=== PATIENT | male | born 1980 | race Caucasian/White ===

== ENCOUNTER 2016-03-16 15:09 | Emergency (ER) | payer OTHER ==
[~2016-03-16] VITALS: Ht 170.1 cm; Wt 90.7 kg
[~2016-03-16 15:09] MED LIST: AMOXIL500 MG PO; CATAFLAM50 MG PO; CIPRO500 MG PO; FLAGYL500 MG PO; HYDR25T PO; HYDROCODONE BIT1 T11 PO; IBU800 M1 PO; NAPROSYN500 MG PO; PREDNISONE20 MG PO; PRILOSEC10 MG PO; PRILOSEC20 MG PO; PRILOSEC40 MG PO; ROBITUSSIN DM 105 ML PO; TEGRETOL XR200 MG PO; TEGRETOL200 MG; TEGRETOL200 MG PO; VOLTAREN50 M1 PO; ZOFRAN ODT4 MG SL; ZOFRAN4 MG PO
[2016-03-16 16:00] LABS: BASO # 0.1 10*3/uL (0.0-0.1); BASO % 0.6 % (0.0-1.0); EOS # 0.3 10*3/uL (0.0-0.4); EOS % 2.7 % (1.0-4.0); HEMATOCRIT 46.8 % (42.0-52.0); HEMOGLOBIN 15.3 g/dl (14.0-18.0); LYMPH # 2.5 10*3/uL (1.3-4.4); LYMPH % 23.9 % (27.0-41.0); MEAN CELL VOLUME 88.1 fl (80.0-94.0); MEAN CORPUSCULAR HGB 28.8 pg (27.0-31.0); MEAN CORPUSCULAR HGB CONC 32.7 g/dl (33.0-37.0); MEAN PLATELET VOLUME 10.1 fl (9.6-12.3); MONO # 0.8 10*3/uL (0.1-1.0); MONO % 7.9 % (3.0-9.0); NEUT # 6.7 10*3/uL (2.3-7.9); NEUT % 64.7 % (47.0-73.0); PLATELET COUNT AUTOMATED 288 10*3/uL (130-400); RED BLOOD COUNT 5.31 10*6/uL (4.50-5.90); RED CELL DISTRI WIDTH 14.6 % (0-14.5); WHITE BLOOD COUNT 10.3 10*3/uL (4.8-10.8)
[2016-03-16 16:30] LABS: URINE AMPHETAMINES < 1000 (1000ng/ml); URINE BARBITURATES < 200 (200ng/ml); URINE COCAINE < 300 (300ng/ml)
[2016-03-16 16:35] LABS: BILIRUBIN NEGATIVE (NEGATIVE); BLOOD NEGATIVE (NEGATIVE); CLARITY CLEAR (CLEAR); COLOR YELLOW (YELLOW); GLUCOSE NEGATIVE (NEGATIVE); KETONE NEGATIVE (NEGATIVE); LEUKO ESTERASE NEGATIVE (NEGATIVE); NITRITE NEGATIVE (NEGATIVE); PH 5.5 (5.0-9.0); PROTEIN NEGATIVE (NEGATIVE); UROBILINOGEN 0.2 E.U./dl (0.2-1.0)
[2016-03-16 16:38] LABS: ALBUMIN 3.5 gm/dl (3.1-4.5); ALKALINE PHOSPHATASE 68 U/L (45-117); BILIRUBIN, TOTAL 0.6 mg/dl (0.2-1.0); BUN 16 mg/dl (7-24); CARBON DIOXIDE 31 mmol/L (21-32); CHLORIDE 106 mmol/L (98-107); EST GLOM FILT AFRICAN AMERICAN > 60 ml/min; GLUCOSE 115 mg/dL (65-99); SGOT/AST 17 IU/L (3-35); SGPT/ALT 26 U/L (12-78); SODIUM 143 mmol/L (136-145); TOTAL PROTEIN 7.2 gm/dL (6.4-8.2)
[2016-03-16 16:46] LABS: BACTERIA TRACE; URINE REFLEX COMMENT NO (NO)
[2016-03-16] MEDS ORDERED: NAPROSYN500 MG PO (17:24)
[2016-03-16] MEDS ORDERED: ZOFRAN4 MG PO (17:24)
== END 2016-03-16 17:29 | disposition home or self-care (01) ==
LOC: ED 15:09
PROVIDERS: Nurse Practitioner Family
DX: R10.84 Generalized abdominal pain (principal); R03.0 Elevated blood-pressure reading, without diagnosis of hypertension; F12.10 Cannabis abuse, uncomplicated; F17.200 Nicotine dependence, unspecified, uncomplicated

== ENCOUNTER 2017-06-09 21:35 | Emergency (ER) | payer OTHER ==
[~2017-06-09] VITALS: Ht 175.2 cm; Wt 90.7 kg
== END 2017-06-09 22:01 | disposition home or self-care (01) ==
LOC: ED 21:35
DX: D17.1 Benign lipomatous neoplasm of skin and subcutaneous tissue of trunk (principal)